=== PATIENT | male | born 1960 | race Two or more races ===

== ENCOUNTER 2023-06-10 18:49 | Emergency (ER) | payer OTHER ==
[~2023-06-10] VITALS: Ht 180.3 cm; Wt 120.6 kg
[2023-06-10 19:53] LABS: Basophils # (auto) 0.1 10 ^3/uL (0-0.2); Basophils % (auto) 0.6 % (0.0-2.0); Eosinophils # (auto) 0.2 10 ^3/uL (0-0.8); Eosinophils % (auto) 2.1 % (0.0-7.0); Hematocrit 43.2 % (41.0-53.0); Hemoglobin 14.7 g/dL (13.5-17.5); Lymphocytes # (auto) 3.1 10 ^3/uL (0.4-5.4); Lymphocytes % (auto) 28.7 % (10.0-50.0); Mean Corpuscular Hemoglobin 31.1 pg (28.0-32.0); Mean Corpuscular Hgb Conc. 34.1 g/dL (32.0-36.0); Mean Corpuscular Volume 91.3 fL (80.0-100.0); Monocytes # (auto) 0.6 10 ^3/uL (0-1.3); Neutrophils # (auto) 6.7 10 ^3/uL (1.6-8.6); Neutrophils % (auto) 62.6 % (37.0-80.0); Red Blood Cells 4.73 10^6/uL (4.5-5.90); Red Cell Distribution Width 13.1 % (11.8-14.3); White Blood Cell 10.7 10^3/uL (4.4-10.8)
[2023-06-10 19:59] LABS: Urine Bacteria NONE SEEN /hpf (None Seen); Urine Blood Negative /uL (Negative); Urine Mucus FEW (None Seen); Urine Specific Gravity 1.027 (1.001-1.035); Urine WBC 1 /hpf (0 - 3)
[2023-06-10 20:11] LABS: Albumin 4.1 g/dL (3.4-5.0); Calcium 8.9 mg/dL (8.5-10.1); Potassium 3.8 mmol/L (3.5-5.1)
[2023-06-10 20:14] LABS: Bilirubin, Total 0.4 mg/dL (0.2-1.0); Total Protein 7.2 g/dL (6.4-8.2)
[2023-06-10] MEDS ORDERED: MORPHINE SULFATE 4 MG/ML SYR/VIAL IM ONE (20:45)
[2023-06-10] MEDS ORDERED: DexAMETHasone SOD PHOS 10MG/1ML VIAL INJ IV ONE (20:45)
[2023-06-10] MEDS ORDERED: KETOROLAC TROMETH 60MG/2ML VIAL IM ONE (20:45)
[2023-06-10] MEDS ORDERED: MORP15TA PO (21:24)
[2023-06-10] MEDS ORDERED: NAP500T PO (21:24)
[2023-06-11 00:40] VITALS: O2SAT 97
[2023-06-11] MEDS ORDERED: DexAMETHasone SOD PHOS 10MG/1ML VIAL INJ IM ONE (01:00)
[2023-06-11 01:34] VITALS: BP 161/80
[2023-06-11 01:44] VITALS: PULSE 92; RESP 18; TEMP 98; O2SAT 99
== END 2023-06-11 01:57 | disposition home or self-care (01) ==
LOC: ER 18:49
DX: G89.29 Other chronic pain (principal); M54.59 Other low back pain; F41.9 Anxiety disorder, unspecified; I10 Essential (primary) hypertension; E11.9 Type 2 diabetes mellitus without complications
CPT/HCPCS: 36415; 80053; 81001; 82962; 85025; 96372; 99285; J1100; J1885; J2270